=== PATIENT | male | born 1955 | race Caucasian/White ===

== ENCOUNTER 2025-05-30 20:59 | Emergency (ER) | payer MEDICARE, MEDICAID ==
[~2025-05-30] VITALS: Ht 175.3 cm; Wt 81.0 kg
[2025-05-30 21:04] VITALS: O2SAT 100
[2025-05-30] MEDS: SODIUM CHLORIDE 0.9% 1,000 ML IV ONE (21:48)
[2025-05-30 22:26] LABS: HEMATOCRIT. 33.8 % (42.0-52.0); HEMOGLOBIN. 11.9 g/dL (14.0-18.0); MEAN PLATELET VOLUME 8.5 fl (7.4-10.4); PLATELET 217 x1000/uL (130-400); RED BLOOD CELL COUNT 3.69 mill/uL (4.7-6.1); RED CELL DISTRIBUTION WIDTH 12.6 % (11.6-14.6)
[2025-05-30 22:35] LABS: INR 1.0
[2025-05-30 22:38] LABS: EOSINOPHILS % MANUAL 4.0 % (0.0-5.0); LYMPHOCYTES % MANUAL 46.0 % (20.0-50.0); MONOCYTES % MANUAL 17.0 % (2.0-8.0); NEUTROPHILS % MANUAL 33.0 % (45.0-75.0); PLATELET ESTIMATE NORMAL
[2025-05-30 22:40] LABS: CREATININE 1.2 mg/dL (0.6-1.3)
[2025-05-30 22:41] LABS: TROPONIN I HIGH SENSITIVITY 6 ng/L (3.0-53); UREA NITROGEN BLOOD 13 mg/dL (9-23)
[2025-05-30 22:42] LABS: ASPARTATE AMINOTRANSFERASE 19 IU/L (<34)
[2025-05-30 22:43] LABS: BILIRUBIN DIRECT 0.1 mg/dL (<=3.0); BILIRUBIN TOTAL 0.3 mg/dL (0.1-1.0); PROTEIN TOTAL 6.5 g/dL (6.0-8.3)
[2025-05-31] VITALS: TEMP 37.1
[2025-05-31] LABS: TROPONIN I HIGH SENSITIVITY 7 ng/L (3.0-53)
[2025-05-31 01:59] LABS: TROPONIN I HIGH SENSITIVITY 6 ng/L (3.0-53)
[2025-05-31 02:15] VITALS: BP 129/68; PULSE 72; RESP 18; O2SAT 99
== END 2025-05-31 02:22 | disposition home or self-care (01) ==
LOC: ER 20:59 → CMPBEDREQ 05-31 07:35
DX: R55 Syncope and collapse (principal); I10 Essential (primary) hypertension; R06.02 Shortness of breath
CPT/HCPCS: 99291; 80076; 80048; 83880; 83735; 85025; 85610; 84484 ×2; 36415 ×2; 71045; 93005; J7030